=== PATIENT | male | born 1975 ===

== ENCOUNTER → 2018-06-27 21:11 | Outpatient (REF) | payer BC, SELFPAY ==
[2018-06-28 00:51] LABS: Hematocrit 43.3 % (41-53); Hemoglobin 14.7 g/dL (13.5-17.5); Mean Corpuscular HGB Conc 33.8 % (30-36); Mean Corpuscular Volume 103.4 fL (80-100); Platelet Count 265 X10^3/uL (150-400); Red Blood Cell Count 4.19 X10^6/uL (4.5-5.9); Red Cell Distribution Width 13.5 % (11.6-14.8); White Blood Cell Count 5.8 X10^3/uL (4.5-11.0)
[2018-06-28 00:54] LABS: Add Manual Diff / Slide Review YES
[2018-06-28 02:03] LABS: Alanine Aminotransferase 61 IU/L (21-72); Albumin 4.7 g/dL (3.5-5.0); Albumin Globulin Ratio 1.8 (1.0-2.8); Alkaline Phosphatase 57 U/L (38-126); Aspartate Aminotransferase 77 IU/L (17-59); BUN Creatinine Ratio 12.9 (6-22); Bilirubin Total 0.7 mg/dL (0.2-1.3); Blood Urea Nitrogen 9 mg/dL (9-20); Calcium 9.9 mg/dL (8.4-10.2); Carbon Dioxide 29 mmol/L (22-32); Chloride 101 mmol/L (98-107); Cholesterol 276 mg/dL (140-199); Estimated Glomerular Filt Rate > 60.0 mL/min (>60); Globulin 2.6 g/dL (1.7-4.1); Glucose 99 mg/dL (70-100); HEMOLYSIS < 15 (0-50); Potassium 4.6 mmol/L (3.4-5.1); Sodium 139 mmol/L (137-145); Total Protein 7.3 g/dL (6.3-8.2); Triglycerides 83 mg/dL (35-150)
[2018-06-28 02:14] LABS: Erythrocyte Sedimentation Rate 5 MM/HR (0-15); High Sensitivity CRP - Cardiac 0.9 mg/L (1.0-3.0)
[2018-06-28 02:18] LABS: HDL Cholesterol 126 mg/dL (40-60); LDL Cholesterol Calculated 133 mg/dL (<100)
[2018-06-28 03:50] LABS: Neutrophils Absolute Manual 3538 /uL (3000-5900); Total Cells Counted 100
[2018-06-28 03:51] LABS: Macrocytosis 2+
[2018-06-28 10:35] LABS: Folate 8.2 ng/mL (2.76-20.0); Vitamin B12 468 pg/mL (239-931)
[2018-06-29 12:06] LABS: Gamma Glutamyl Transpeptidase 222 U/L (15-73)
[2018-07-05 23:02] LABS: Methylmalonic Acid 195 nmol/L (87-318)
== END ==
LOC: LAB 21:11
PROVIDERS: Visit Provider Naturopath
DX: R41.0 Disorientation, unspecified (principal); R61 Generalized hyperhidrosis; E77.8 Other disorders of glycoprotein metabolism; R74.8 Abnormal levels of other serum enzymes; E78.00 Pure hypercholesterolemia, unspecified
CPT/HCPCS: 36415; 80053; 80061; 82607; 82746; 82977; 83036; 83525; 83921; 84443; 85025; 85651; 86140

== ENCOUNTER → 2018-07-07 23:02 | Outpatient (REF) | payer BC, SELFPAY | LOC: LAB 23:02 | PROVIDERS: Visit Provider Naturopath | DX: R68.82 Decreased libido (principal) | CPT/HCPCS: 36415; 84402; 84403 ==